=== PATIENT | male | born 1950 | race Caucasian/White ===

== ENCOUNTER 2016-10-07 22:51 | Emergency (ER) | payer SELFPAY ==
[2016-10-07 23:01] VITALS: BP 153/80
--- NOTE | 2016-10-08 00:29 | ED ---
Skin Complaint - HPI Summary HPI Summary: 66 male presents with complaints of surgical site bleeding that began around 10pm tonight. Patient states he had hernia repair yesterday at [facility] and did not have any complications. Was not warned of any bleeding. Attempted to call his surgeon however did not get through, as office was closed. Patient states it is not the incision it is the area his pain management infusion pump is placed. the ABD pad is lightly soaked with light blood. Denies any hemorrhaging or leaking of blood currently, appears to have subsided. No pain or discharge. Denies fever/chills. No other complaints at this time. - History of Current Complaint Chief Complaint: EDLacSutureRecheck Time Seen by Provider: 10/08/16 00:15 Stated Complaint: POST SURGERY/BLEEDING Hx Obtained From: Patient Onset/Duration: Started Hours Ago Skin Exposure Onset/Duration: Hours Ago - 2 Timing: Lasting Hours - 1 Current Severity: None Pain Intensity: 0 Pain Scale Used: 0-10 Numeric Skin Location: Abdomen - at infusion pump insertion of LLQ Aggravating Symptom(s): Nothing Alleviating Symptom(s): Nothing Associated Signs & Symptoms: Negative - Allergy/Home Medications Allergies/Adverse Reactions: Allergies Allergy/AdvReac Type Severity Reaction Status Date / Time Doxycycline Allergy Mild NAUSEA, Verified 10/07/16 22:57 DIZZY Erythromycin Allergy Mild NAUSEA, Verified 10/07/16 22:57 DIZZY PMH/Surg Hx/FS Hx/Imm Hx Endocrine/Hematology History: Denies: Hx Diabetes, Hx Thyroid Disease Cardiovascular History: Denies: Hx Hypertension, Other Cardiovascular Problems/Disorders - DENIES Respiratory History: Reports: Other Respiratory Problems/Disorders - MILD CASE OF EMPHYSEMA Denies: Hx Asthma, Hx Chronic Obstructive Pulmonary Disease (COPD) GI History: Denies: Hx Ulcer Sensory History: Reports: Hx Contacts or Glasses - GLASSES Denies: Hx Hearing Aid Opthamlomology History: Reports: Hx Contacts or Glasses - GLASSES Neurological History: Reports: Other Neuro Impairments/Disorders - VERTIGO-2012- LASTED 3 WEEKS - Surgical History Surgery Procedure, Year, and Place: hernia repair 10/06/16. 1986: Lung surgery, to repair pneumothorax. [place]RETERAL ST[place] [facility] [place] [facility] [place] Anesthesia Reactions: No - Immunization History Immunizations Up to Date: Yes Infectious Disease History: No Infectious Disease History: Denies: Hx Hepatitis, Hx Human Immunodeficiency Virus (HIV), Traveled Outside the [place] in Last 30 Days - Family History Known Family History: Positive: None - Social History Alcohol Use: None Substance Use Type: Reports: None Smoking Status (MU): Never Smoked Tobacco Review of Systems Constitutional: Negative Cardiovascular: Negative Respiratory: Negative Positive: Other - bleeding from infusion pump surgical site All Other Systems Reviewed And Are Negative: Yes Physical Exam Triage Information Reviewed: Yes Vital Signs On Initial Exam: Initial Vitals Temp Pulse Resp BP Pulse Ox 98 F 72 16 153/80 97 10/07/16 22:59 10/07/16 22:59 10/07/16 22:59 10/07/16 22:59 10/07/16 22:59 Vital Signs Reviewed: Yes Appearance: Positive: Well-Appearing, No Pain Distress, Well-Nourished Skin: Positive: Warm, Skin Color Reflects Adequate Perfusion, Dry, Other - surgical incision appears well approximated and without complication, infection or bleeding, LLQ infusion pump for pain management covered with ABD pad minimal soaked with some blood, no active bleeding, no hemorrhage. dressing still inplace, pump working correctly. no concern for discharge, infection and non tender. Negative: Cold, Numb, Soft, Pale, Erythema @ Head/Face: Positive: Normal Head/Face Inspection Eyes: Positive: Conjunctiva Clear ENT: Positive: Hearing grossly normal Neck: Positive: Supple, Nontender Respiratory/Lung Sounds: Positive: Clear to Auscultation, Breath Sounds Present. Negative: Rales, Rhonchi, Wheezes Cardiovascular: Positive: Normal, RRR, Pulses are Symmetrical in both Upper and Lower Extremities. Negative: Murmur, Rub Abdomen Description: Positive: No Organomegaly, Soft, Other: - slightly tender lower abdomen due to recent hernia repair Bowel Sounds: Positive: Present Musculoskeletal: Positive: Normal, Strength/ROM Intact Neurological: Positive: Normal, Sensory/Motor Intact, Alert, Oriented to Person Place, Time Psychiatric: Positive: Normal Diagnostics - Vital Signs Vital Signs Temp Pulse Resp BP Pulse Ox 10/07/16 22:59 98 F 72 16 153/80 97 - Laboratory Lab Statement: Any lab studies that have been ordered have been reviewed, and results considered in the medical decision making process. Course/Dx - Course Course Of Treatment: due to PE findings appears to have been an oozing bleeding from opening in abdomen due to surgical site wound. not on anticoagulants. bleeding minimal covering ABD pad dressing. No active bleeding. also consulted Dr Uriostegui. Did not remove dressing due to in not appearing of concern. follow up with surgeon tomorrow morning. aware of worsening signs and symptoms such as active bleeding/hemorrhaging to seek medical attention. - Differential Diagnoses - Skin Complaint Differential Diagnoses: Other - infection, hemorrhage, incision complication, laceration - Diagnoses Provider Diagnoses: Postoperative bleeding from incision, Presence of implanted infusion pump Discharge - Discharge Plan Condition: Stable Disposition: HOME Patient Education Materials: Local Infusion Pain Management Pump (ED) Referrals: Alin Hermosillo MD [Primary Care Provider] - Additional Instructions: Please call your surgeon tomorrow morning for further evaluation. If bleeding recurs and is hemorrhaging, feeling lightheaded, dizzy or painful please seek medical attention promptly.
== END 2016-10-08 00:37 | disposition home or self-care (01) ==
LOC: ED 22:51
DX: L76.22 Postprocedural hemorrhage of skin and subcutaneous tissue following other procedure (principal); Z97.8 Presence of other specified devices
CPT/HCPCS: 99281

== ENCOUNTER 2018-10-01 08:07 | Emergency (ER) | payer OTHER ==
[2018-10-01 08:20] VITALS: BP 130/58
--- NOTE | 2018-10-01 08:45 | UC ---
General HPI - HPI Summary HPI Summary: Patient is68 year old male , who present today to the urgent care with fatigue and bodyaches and fever for past 2-3 days. Fever at home today morning was 100.2F He is concerned about Lyme disease but denies any known tick bite. Denies any rash anywhere in the body that is noticed. Denies any cough chest pain or shortness of breath . No diaphoresis. Denies any abdominal pain , nausea or vomiting , diarrhea or constipation. - History of Current Complaint Chief Complaint: UCGeneralIllness Stated Complaint: FEVER/BODYACHES Time Seen by Provider: 10/01/18 08:20 Hx Obtained From: Patient Pain Intensity: 7 - Allergy/Home Medications Allergies/Adverse Reactions: Allergies Allergy/AdvReac Type Severity Reaction Status Date / Time doxycycline Allergy Nausea, Verified 10/01/18 08:12 Dizzy erythromycin base Allergy Nausea, Verified 10/01/18 08:12 Dizzy Home Medications: Home Medications Acetaminophen 2 tab PO ONCE PRN 10/01/18 [History Confirmed 10/01/18] PMH/Surg Hx/FS Hx/Imm Hx - Additional Past Medical History Additional PMH: Past Medical History : Spontaneous pneumothorax Past Surgical History: Pulmonary surgery, hernia repair Family History : non contributory Social History : Daily when necessary take, non smoker, no drug use. Previously Healthy: Yes - Surgical History Surgical History: Yes Surgery Procedure, Year, and Place: hernia repair x 2 10/06/16. 1986: Lung surgery, to repair pneumothorax. URETERAL STENT TO VISUALIZE KIDNEY-2007 [facility] [place]. VOCAL CHORD BIOPSY 2012 [facility] [place] - Family History Known Family History: Positive: None - Social History Alcohol Use: Daily Alcohol Amount: 1-2 beers q daily Substance Use Type: None Smoking Status (MU): Never Smoked Tobacco Household Exposure Type: Cigarettes Review of Systems All Other Systems Reviewed And Are Negative: Yes Constitutional: Positive: Fever, Fatigue Skin: Positive: Negative Eyes: Positive: Negative ENT: Positive: Negative Respiratory: Positive: Negative Cardiovascular: Positive: Other - irregular pulse Gastrointestinal: Positive: Negative Genitourinary: Positive: Negative Motor: Positive: Negative Neurovascular: Positive: Negative Musculoskeletal: Positive: Negative Neurological: Positive: Negative Psychological: Positive: Negative Is Patient Immunocompromised?: No Physical Exam - Summary Physical Exam Summary: Physical Exam: Const: Appears well. No signs of apparent distress present. Alert and oriented x 3. Musculo: Walks with a normal gait. Head/Face: Atraumatic, normocephalic on inspection. Eyes: EOMI and PERRLA in both eyes. Conjunctivae clear. No discharge noted ENT: Hearing normal, TM normal appearing bilaterally, No pharyngeal erythema or exudates . Uvula is midline. No cervical or submandibular lymphadenopathy noted. Respiratory: Respirations are unlabored. Lungs clear to auscultation bilaterally, no wheezing , rhonchi or rales noted . CVS: Irregular Rhythm, S1S2 normal , no murmurs identified. Extremities: Peripheral circulation is grossly normal. Pulses 2+ Abdomen : Soft non tender , nondistended , Bowel sounds present . No guarding , rebound tenderness or rigidity noted. Skin: No lesions or rash located on the upper extremities or on the lower extremities. Neuro: Cranial nerves II to XII intact, motor and sensory intact. DTR Intact bilaterally. Mood is normal. Affect is normal. Triage Information Reviewed: Yes Vital Signs: Initial Vital Signs Temp 100.1 F 10/01/18 08:16 Pulse 55 10/01/18 08:16 Resp 18 10/01/18 08:16 BP 130/58 10/01/18 08:16 Pulse Ox 98 10/01/18 08:16 Vital Signs Reviewed: Yes Diagnostics - EKG Cardiac Rate: Tachycardia Cardiac Rhythm: Sinus: Normal ST Segment: Non-Specific EKG Comparison: Other - 06/2012 Summary of EKG Findings: Sinus rhythm, irregular, ST changes noted in V2 approximately 1 mmST elevation, and V3 with less than 1 mm elevation, ST depression in V4 but wondering baseline. New findings when compared to EKG from June 2012. Repeat EKG: Again sinus rhythm, irregular rhythm with ST segment changes in V2 and V3 but no ST depression in V4. Course/Dx - Course Course Of Treatment: I believe that the patient may have cardiac ischemia given the findings on the EKG. I discussed this at length with him. He verbalizes understanding of his potential diagnosis and risks. I strongly advised him to be transferred to ER and further evaluation and treatment there. He refused to go to the ED, patient signed out AMA. While here he was tested for Lyme and blood was obtained for CBC/CMP. I advised him that somebody will call her with the test results and recommend appropriate treatment - Differential Dx - Multi-Symptom Differential Diagnoses: Cardiac Ischemia - Diagnoses Provider Diagnosis: Viral syndrome, Cardiac ischemia Discharge - Sign-Out/Discharge Documenting (check all that apply): Patient Departure All imaging exams completed and their final reports reviewed: No Studies - Discharge Plan Condition: Stable Disposition: AGAINST MEDICAL ADVICE Referrals: Alin Hermosillo MD [Primary Care Provider] - 1 Day Additional Instructions: Strongly recommend further evaluation for heart attack Some one will call you with lab results once available. - Billing Disposition and Condition Condition: STABLE Disposition: Against Medical Advice
[2018-10-01 14:04] LABS: ABS Eosinophils 0.2 10^3/ul (0-0.6); ABS Lymphocytes 0.6 10^3/ul (1.0-4.8); ABS Monocytes 1.1 10^3/ul (0-0.8); ABS Neutrophils 12.4 10^3/ul (1.5-7.7); Eosinophil % 1.2 %; Hematocrit 42 % (42-52); Hemoglobin 14.1 g/dL (14.0-18.0); Lymphocyte % 4.4 %; Mean Corpuscular HGB Conc 34 g/dL (31-36); Mean Corpuscular Hemoglobin 31 pg (27-31); Mean Corpuscular Volume 92 fL (80-94); Mean Platelet Volume 9.2 fL (7.4-10.4); Platelet Count 181 10^3/uL (150-450); Red Blood Count 4.57 10^6 /uL (4.18-5.48); Red Cell Distribution Width 13 % (10-15); White Blood Count 14.4 10^3/uL (3.5-10.8)
[2018-10-01 14:14] LABS: Calcium 8.9 mg/dL (8.6-10.3); Potassium 4.5 mmol/L (3.5-5.0); Total Bilirubin 0.8 mg/dL (0.2-1.0)
[2018-10-01 14:20] LABS: Albumin/Globulin Ratio 1.5 (1-3); BUN/Creatinine Ratio 17.7 (8-20); EGFR African American 117.7 (>60); EGFR Non-African American 97.2 (>60); Globulin 2.6 g/dL (2-4); Total Protein 6.6 g/dL (6.4-8.9)
--- NOTE | 2018-10-02 07:28 | UC ---
- Progress Note Progress Note: PLEASE CALL PATIENT. LABS SHOW ELEVATED WHITE BLOOD CELL COUNT WITH LEFT SHIFT. SODIUM SLIGHTLY LOW. GIVEN HIS PRESENTATION TO THE YESTERDAY WITH FEVER AND OVERALL MALAISE WOULD AGAIN RECOMMEND HE PRESENT TO THE EMERGENCY ROOM FOR FURTHER EVALUATION. Course/Dx - Diagnoses Provider Diagnoses: Viral syndrome, Cardiac ischemia Discharge - Sign-Out/Discharge Documenting (check all that apply): Post-Discharge Follow Up All imaging exams completed and their final reports reviewed: No Studies - Discharge Plan Condition: Stable Disposition: AGAINST MEDICAL ADVICE Referrals: Alin Hermosillo MD [Primary Care Provider] - 1 Day Additional Instructions: Strongly recommend further evaluation for heart attack Some one will call you with lab results once available. - Billing Disposition and Condition Condition: STABLE Disposition: Against Medical Advice
== END 2018-10-01 08:55 | disposition left against medical advice (07) ==
LOC: UCEAST 08:07
DX: B34.9 Viral infection, unspecified (principal); I25.9 Chronic ischemic heart disease, unspecified
CPT/HCPCS: 36415; 80053; 85025; 86618; 93005; 99212; G0463